=== PATIENT | female | born 1960 | race Two or more races ===

== ENCOUNTER 2020-05-13 13:11 | Outpatient (CLI) | payer MEDICARE ==
[2020-05-13] MEDS ORDERED: DENO60DI IV (13:46)
[2020-05-13] MEDS ORDERED: PRED1TAB19 PO (13:46)
[2020-05-13] MEDS ORDERED: ASPI81TA45 PO (13:46)
[2020-05-13] MEDS ORDERED: UPAD15TA PO (13:46)
[2020-05-13] MEDS ORDERED: RED600TA PO (13:46)
[2020-05-13] MEDS ORDERED: [UNRECOGNIZED DRUG - CODE] IM (13:46)
[2020-05-20] MEDS ORDERED: ONDANSETRON 2MG/ML, 2ML ONE (13:45)
== END 2020-05-13 23:59 | disposition home or self-care (01) ==
LOC: STAR 13:11
PROVIDERS: ATTEND Surgery
DX: Z02.9 Encounter for administrative examinations, unspecified (principal)

== ENCOUNTER 2020-05-20 09:52 | Day surgery (SDC) | payer MEDICARE ==
[~2020-05-20] VITALS: Ht 154.9 cm; Wt 57.0 kg
[~2020-05-20 09:52] MED LIST: ASPI81TA45 PO; BUPIVACAINE/PF-EPI 0.5% 1:200K ONE; DENO60DI IV; PRED1TAB19 PO; RED600TA PO; UPAD15TA PO; [UNRECOGNIZED DRUG - CODE] IM
[2020-05-20] MEDS ORDERED: LACTATED RINGERS 1,000 ML IV SCH (10:15)
[2020-05-20 10:17] VITALS: BP 102/64
[2020-05-20] MEDS ORDERED: CHLORHEXIDINE 15 ML UDC MM ONE (10:30)
[2020-05-20] MEDS ORDERED: DEXAMETHASONE 4 MG/ML, 1ML ONE (10:59)
[2020-05-20] MEDS ORDERED: GLYCOPYRROLATE 0.2MG/1ML, 5ML ONE (10:59)
[2020-05-20] MEDS ORDERED: LIDOCAINE-MPF 2% ,5ML ONE (10:59)
[2020-05-20] MEDS ORDERED: ROCURONIUM 10MG/ML,5ML ONE (10:59)
[2020-05-20] MEDS ORDERED: PROPOFOL 10 MG/ML, 20ML ONE (10:59)
[2020-05-20] MEDS ORDERED: ALBUTEROL/IPRATROPIUM 2.5MG/0.5MG, 3 ML NPPB PRN (11:00)
[2020-05-20] MEDS ORDERED: METHOCARBAMOL 1,000 MG in DEXTROSE 5% 100 ML IV ONE ×2 (11:00→15:00)
[2020-05-20] MEDS ORDERED: METOCLOPRAMIDE 5 MG/ML, 2ML IVPush PRN (11:00)
[2020-05-20] MEDS ORDERED: ONDANSETRON 2MG/ML, 2ML IVPush PRN (11:00)
[2020-05-20] MEDS ORDERED: DIAZEPAM 5 MG/ML, 2ML IVPush PRN (11:00)
[2020-05-20] MEDS ORDERED: KETOROLAC 30 MG/1 ML IVPush PRN (11:00)
[2020-05-20] MEDS ORDERED: LORazepam 2 MG/ML, 1ML IVPush PRN (11:00)
[2020-05-20] MEDS ORDERED: FENTANYL PF 250 MCG/5ML ONE (11:00)
[2020-05-20] MEDS ORDERED: HYDROcodone/APAP 7.5-325MG/15ML UDC PO PRN (11:00)
[2020-05-20] MEDS ORDERED: EPHEDRINE 50 MG/ML, 1ML IVPush PRN (11:00)
[2020-05-20] MEDS ORDERED: hydrALAzine 20 MG/ML, 1ML IV PRN (11:00)
[2020-05-20] MEDS ORDERED: HYDROmorphone 1 MG/ML, 1ML INJ IVPush PRN (11:00)
[2020-05-20] MEDS ORDERED: LABETALOL 5MG/ML, 20ML IV PRN (11:00)
[2020-05-20] MEDS ORDERED: OXYcodone 5 MG/5 ML ORAL.SOL UDC PO PRN (11:00)
[2020-05-20] MEDS ORDERED: ACETAMINOPHEN 325 MG TABLET PO PRN (11:00)
[2020-05-20] MEDS ORDERED: MIDAZOLAM 1 MG/ML, 2ML ONE (11:00)
[2020-05-20] MEDS ORDERED: MIDAZOLAM 1 MG/ML, 2ML IV PRN (11:00)
[2020-05-20] MEDS ORDERED: EPHEDRINE 50 MG/ML, 1ML IM PRN (11:00)
[2020-05-20] MEDS ORDERED: HALOPERIDOL 5 MG/ML IV PRN (11:00)
[2020-05-20] MEDS ORDERED: DIPHENHYDRAMINE 50 MG/ML, 1ML IVPush PRN (11:00)
[2020-05-20] MEDS ORDERED: BUPIVACAINE/PF-EPI 0.5% 1:200K ONE (12:14)
[2020-05-20] MEDS ORDERED: ONDANSETRON 2MG/ML, 2ML ONE (13:01)
[2020-05-20] MEDS ORDERED: METOPROLOL 1 MG/ML, 5ML ONE (13:01)
[2020-05-20] MEDS ORDERED: CEFAZOLIN 1,000 MG ONE (13:01)
[2020-05-20] MEDS: FENTANYL PF 100 MCG/2ML IV PRN ×3 (14:00→14:40)
[2020-05-20] MEDS ORDERED: OXYcodone 5 MG/5 ML ORAL.SOL UDC ONE (14:08)
[2020-05-20] MEDS ORDERED: FENTANYL PF 100 MCG/2ML ONE (14:08)
== END 2020-05-20 18:55 | disposition home or self-care (01) ==
LOC: OUT 09:52
PROVIDERS: ATTEND Surgery
DX: K41.30 Unilateral femoral hernia, with obstruction, without gangrene, not specified as recurrent (principal); Z11.59 Encounter for screening for other viral diseases; M06.9 Rheumatoid arthritis, unspecified; E78.00 Pure hypercholesterolemia, unspecified; Z79.899 Other long term (current) drug therapy; Z88.8 Allergy status to other drugs, medicaments and biological substances; Z90.710 Acquired absence of both cervix and uterus; Z98.890 Other specified postprocedural states
CPT/HCPCS: 36415; 49659; 87635; C1781; J0690; J1100; J2250; J2405; J2704; J2800; J3010; J7120

== ENCOUNTER → 2020-12-03 | Outpatient (CLI) | payer MEDICARE ==
[~2020-12-03] MED LIST changes: -BUPIVACAINE/PF-EPI 0.5% 1:200K ONE; +CALC1TAB4 PO; +CHOL200074 PO; +DENO60DI INJ; -DENO60DI IV; +FISH1CAP PO
== END | disposition home or self-care (01) ==
LOC: STAR 08:40
PROVIDERS: ATTEND Obstetrics & Gynecology
DX: Z01.818 Encounter for other preprocedural examination (principal); R10.31 Right lower quadrant pain; Z20.822 Contact with and (suspected) exposure to COVID-19
CPT/HCPCS: 87635; 93005

== ENCOUNTER 2020-12-09 12:04 | Day surgery (SDC) | payer MEDICARE ==
[~2020-12-09] VITALS: Ht 154.9 cm; Wt 58.9 kg
[~2020-12-09 12:04] MED LIST changes: +BUPIVACAINE/PF 0.25% ONE
[2020-12-09] MEDS ORDERED: CHLORHEXIDINE 15 ML UDC MM ONE (12:30)
[2020-12-09] MEDS ORDERED: LACTATED RINGERS 1,000 ML IV SCH (12:30)
[2020-12-09 12:33] VITALS: BP 126/78
[2020-12-09] MEDS ORDERED: MIDAZOLAM 1 MG/ML, 2ML ONE (12:55)
[2020-12-09] MEDS ORDERED: FENTANYL PF 250 MCG/5ML ONE (12:55)
[2020-12-09] MEDS ORDERED: ONDANSETRON 2MG/ML, 2ML ONE (13:29)
[2020-12-09] MEDS ORDERED: CEFAZOLIN 1,000 MG ONE (13:29)
[2020-12-09] MEDS ORDERED: ROCURONIUM 10MG/ML,5ML ONE (13:29)
[2020-12-09] MEDS ORDERED: SUGAMMADEX 200 MG/2 ML IVPush ONE (13:29)
[2020-12-09] MEDS ORDERED: PROPOFOL 10 MG/ML, 20ML ONE (13:29)
[2020-12-09] MEDS ORDERED: PHENYLEPHRINE 10 MG/ML ONE (13:29)
[2020-12-09] MEDS ORDERED: DEXAMETHASONE 4 MG/ML, 1ML ONE (13:29)
[2020-12-09] MEDS ORDERED: LIDOCAINE-MPF 1%, 2ML ONE (13:29)
[2020-12-09] MEDS ORDERED: FENTANYL PF 100 MCG/2ML IV PRN (14:30)
[2020-12-09] MEDS ORDERED: HYDROmorphone 1 MG/ML, 1ML INJ IVPush PRN (14:30)
[2020-12-09] MEDS ORDERED: DIAZEPAM 5 MG/ML, 2ML IVPush PRN (14:30)
[2020-12-09] MEDS ORDERED: EPHEDRINE 50 MG/ML, 1ML IVPush PRN (14:30)
[2020-12-09] MEDS ORDERED: METOCLOPRAMIDE 5 MG/ML, 2ML IVPush PRN (14:30)
[2020-12-09] MEDS ORDERED: HALOPERIDOL 5 MG/ML IV PRN (14:30)
[2020-12-09] MEDS ORDERED: PROMETHAZINE 25 MG/ML, 1ML IVPush PRN (14:30)
[2020-12-09] MEDS ORDERED: LABETALOL 5MG/ML, 20ML IV PRN (14:30)
[2020-12-09] MEDS ORDERED: KETOROLAC 30 MG/1 ML IV PRN (14:30)
[2020-12-09] MEDS ORDERED: METOPROLOL 1 MG/ML, 5ML IV PRN (14:30)
[2020-12-09] MEDS ORDERED: DIPHENHYDRAMINE 50 MG/ML, 1ML IVPush PRN (14:30)
[2020-12-09] MEDS ORDERED: hydrALAzine 20 MG/ML, 1ML IV PRN (14:30)
[2020-12-09] MEDS ORDERED: OXYcodone 5 MG/5 ML ORAL.SOL UDC PO PRN (14:30)
[2020-12-09] MEDS ORDERED: ONDANSETRON 2MG/ML, 2ML IVPush PRN (14:30)
[2020-12-09] MEDS ORDERED: ACETAMINOPHEN 325 MG TABLET PO PRN (14:30)
[2020-12-09] MEDS ORDERED: IBUP-1223 PO (14:42)
[2020-12-09] MEDS ORDERED: OXYC1TAB14 PO (14:42)
[2020-12-09] MEDS ORDERED: OXYcodone 5 MG/5 ML ORAL.SOL UDC ONE (14:47)
[2020-12-09] MEDS ORDERED: ACETAMINOPHEN 650 MG/20.3 ML UDC ONE (14:47)
== END 2020-12-09 17:00 | disposition home or self-care (01) ==
LOC: OUT 12:04
PROVIDERS: ATTEND Obstetrics & Gynecology
DX: R10.31 Right lower quadrant pain (principal); N73.6 Female pelvic peritoneal adhesions (postinfective); M06.9 Rheumatoid arthritis, unspecified; M35.00 Sjogren syndrome, unspecified; Z79.899 Other long term (current) drug therapy; Z88.2 Allergy status to sulfonamides; Z88.8 Allergy status to other drugs, medicaments and biological substances; Z90.710 Acquired absence of both cervix and uterus; Z98.890 Other specified postprocedural states
CPT/HCPCS: 58661; 88305; J2250; J3010; J7120; J0690; J1100; J2405; J2704; J2370